=== PATIENT | female | born 1935 | race Caucasian/White ===

== ENCOUNTER 2016-08-12 11:44 | Observation (INO) | payer OTHER ==
--- NOTE | ~2016-08-12 | ECH ---
Echocardiogram [address] [address] NAME: BLANCA MORE : 33 STATUS : DIS Gurpreet PAT#: [id number] AGE: 81 ADM/REG DATE : 08/12/16 MR#: [id number] REPORT SERV DATE: 08/16/16 DICTATED BY: ALYSSA GUILLAUME DATE: 08/14/16 REPORT STATUS : Draft TRANSCRIBED BY: MODL DATE: 08/14/16 ORDERING: Grzegorz Lincoln Jr, MD INDICATIONS: Syncope. STUDY QUALITY: Good. MEASUREMENTS (in cm) Aortic Root = 3.4. Septal Wall = 1.0 Posterior Wall = 1.0 LV Diastolic = 5.0 LV Systolic = 3.7 Left Atrium = 3.4 STEW: 21 mL/m2. LVEF: By Menjivar's method 45% (may differ from visual estimation of LVEF). E/A: 0.4. 2D DOPPLER: Aortic Valve: Sclerotic with adequate systolic excursion. Aortic Root: Normal. Mitral Valve: Mitral annular calcification identified with adequate leaflet excursion in diastole. Tricuspid Valve: Morphologically normal without prolapse. Pulmonic Valve: Grossly normal. Left Ventricle: No high grade segmental wall motion abnormalities. Ejection fraction is estimated to be in the range of 50%. Right Ventricle: Normal. Pericardial Space: No effusion. Intracardiac Masses: None. Other: None. DOPPLER/COLOR FLOW: 1+ MR. 1+ TR. No [place]. FINAL IMPRESSION: 1. Normal LV wall thickness and size. 2. Lower limits of normal LVEF without segmental wall motion abnormalities. 3. Grade 1 diastolic dysfunction. 4. Aortic valve sclerosis without stenosis. 5. No echocardiographic substrate for syncope identified. /MODL Alyssa Guillaume M.D. / [id number] Echocardiogram [address] [address] NAME: BLANCA MORE : 33 STATUS : DIS Gurpreet PAT#: [id number] AGE: 81 ADM/REG DATE : 08/12/16 MR#: [id number] REPORT SERV DATE: 08/16/16 DICTATED BY: ALYSSA GUILLAUME DATE: 08/14/16 REPORT STATUS : Draft TRANSCRIBED BY: IMMANUEL DATE: 08/14/16 CC: Grzegorz Lincoln Jr, MD Janak Naik, M.D.
--- NOTE | ~2016-08-12 | HP ---
History And Physical [place] [address] [place]. [address] NAME: BLANCA MORE : 33 STATUS : ADM Gurpreet PAT#: [id number] AGE: 81 ADM/REG DATE : 08/12/16 MR#: [id number] REPORT SERV DATE: 08/12/16 DICTATED BY: JR. LINCOLN WILLIAM JOHN DATE: 08/12/16 REPORT STATUS : Draft TRANSCRIBED BY: MODL DATE: 08/12/16 DATE OF ADMISSION: 08/12/2016 HISTORY OF PRESENT ILLNESS: This patient was discussed with Dr. Fuentes from the emergency room prior to acceptance. The patient is an 81-year-old female, who presented to the emergency room after a fall. The patient has been nauseous for a few days with decreased oral intake. She went to the toilet today. She urinated, got up, flushed the toilet, and then fell forward striking her left eye on the commode. She remembers falling. There was no definite loss of consciousness. The patient's daughter was in the next room and witnessed the patient post fall without loss of consciousness. No shaking, no loss of bowel or bladder control. The patient denies chest pain, shortness of breath, palpitations, fevers, chills, or urinary complaints. PAST MEDICAL HISTORY: Includes: 1. 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 2. Hypertension. 3. 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 4. Coronary artery disease with stents x2, followed by Dr. Guillaume. 5. Hypothyroidism. 6. Chronic kidney disease, stage III. 7. History of gastric ulcers. 8. History of esophageal ulcers. 9. Hyperlipidemia. 10.History of cholecystectomy. HOME MEDICATIONS: Include: 1. Aspirin 81 daily. 2. Plavix 75 daily. 3. Lantus 20 units twice a day. 4. Synthroid 175 mcg daily. 5. Lopressor 100 twice a day. 6. Multivitamin tablet orally daily. 7. Nifedipine 60 daily. 8. Omeprazole 40 daily. 9. Pravachol 40 daily. 10.Ropinirole 1 mg daily. 11.Aldactone 25 mg daily. 12.Demadex 40 mg in the morning, 20 mg in the evening. ALLERGIES: NO KNOWN DRUG ALLERGIES. FAMILY HISTORY: Mother at age 77 of myocardial infarction. Father at age 54 of History And Physical [place] [address] [place]. [address] NAME: BLANCA MORE : 33 STATUS : ADM Gurpreet PAT#: [id number] AGE: 81 ADM/REG DATE : 08/12/16 MR#: [id number] REPORT SERV DATE: 08/12/16 DICTATED BY: JR. LINCOLN WILLIAM JOHN DATE: 08/12/16 REPORT STATUS : Draft TRANSCRIBED BY: IMMANUEL DATE: 08/12/16 stroke. SOCIAL HISTORY: Lives in [place], [place] alone. She is , since 2007, has four children who visit often. 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 She denies tobacco, alcohol, or illicit drugs. REVIEW OF SYSTEMS: A full 12-point review of systems conducted with the patient. She denies all complaints except gradual weight loss with decreased appetite, nonproductive cough of several weeks and nausea and vomiting. Code status is discussed with the patient. In the event of cardiopulmonary arrest, she desires full resuscitative measures. PHYSICAL EXAMINATION: VITAL SIGNS: Temperature 98.4, blood pressure 135/63, heart rate 89, respiratory rate 24, supine blood pressure 138/64 with a heart rate of 83, sitting blood pressure 120/64 with a heart rate of 99, standing blood pressure 74/43 with a heart rate of 108. GENERAL: The patient is alert, oriented, pleasant in no distress. HEENT: Her pupils are equal, round, and reactive to light. Extraocular motion intact. Sclerae anicteric. Oropharynx clear. She had left yamini-orbital ecchymoses from the fall. Mucosal membranes were dry. NECK: Supple without jugular venous distention, thyromegaly, or bruits. LUNGS: Clear to auscultation bilaterally with symmetrical chest rise. CARDIOVASCULAR: S1, S2 without gallop, murmur, or rub. There is regular rate and rhythm. Point of maximal impulse was not discernable. ABDOMEN: Soft, nontender, bowel sounds present. No hepatosplenomegaly. EXTREMITIES: Show no clubbing, cyanosis, or edema. NEUROLOGIC: Cranial nerves 2 through 12 are intact. Strength and sensation were full and equal throughout. Knee jerk was equal and symmetrical. Romberg was negative. There was no drift. PSYCHIATRIC: Mood and affect were appropriate. DERMATOLOGIC: No rash or other lesions noted. LYMPH NODE: Survey is negative in cervical and supraclavicular region. LABORATORY DATA: White count of 8.6, hemoglobin 13.9, platelets 249. PTT of 23.6, PT of 13.8 with an INR of 1.1. Sodium 137, potassium 3.3, chloride 96, bicarb 31, BUN 29, creatinine 2, glucose 189, magnesium 2.1. Calcium 11.6, troponin I 0.07, baseline creatinine is 1.9. CT of the brain showed no acute event. There was left orbital swelling, atrophy, and chronic ischemic changes in the brain. EKG shows sinus rhythm rate of 88 with LVH with widening QRS and Q-waves in the inferior leads. ASSESSMENT AND PLAN: An 81-year-old female with: 1. Orthostatic hypotension with fall. CT of the head is without intracranial process. There was no neurologic deficit. I discussed syncope workup with the patient. Given History And Physical [address] [address] NAME: BLANCA MORE : 33 STATUS : ADM Gurpreet PAT#: [id number] AGE: 81 ADM/REG DATE : 08/12/16 MR#: [id number] REPORT SERV DATE: 08/12/16 DICTATED BY: JR. LINCOLN WILLIAM JOHN DATE: 08/12/16 REPORT STATUS : Draft TRANSCRIBED BY: IMMANUEL DATE: 08/12/16 her positive orthostatics, we will defer on parts of the workup. We will plan to hold her torsemide, give 1 L fluid bolus, hold her Aldactone, check orthostatic vital signs in the morning. Check UA with reflex culture and check a troponin x2 to map out the elevated troponin which likely represents demand ischemia. We will also check an echocardiogram. 2. Hypokalemia, replace per protocol. 3. Hypercalcemia, likely due to volume contraction. We will recheck in the morning. We will also check an ionized calcium, parathyroid hormone, and parathyroid hormone related peptide, LDH, CMP looking specifically for alkaline phosphatase. 4. Insulin-requiring diabetes mellitus. We will continue home regimen. Check hemoglobin A1c. 5. Hypertension. Continue home medications. 6. Coronary artery disease with stent. Continue aspirin and Plavix. 7. Hypothyroidism. Continue Synthroid. Check a TSH. 8. Hyperlipidemia. Continue Pravachol. 9. This patient is full code. 10.Observation status. WJF/MODL Grzegorz Lincoln Jr, MD / [id number] CC: Grzegorz Lincoln Jr, MD
--- NOTE | ~2016-08-12 | DS ---
Discharge Summary [facility] [address] [place]. [address] NAME: BLANCA MORE : 33 STATUS : DIS Gurpreet PAT#: [id number] AGE: 81 ADM/REG DATE : 08/12/16 MR#: [id number] REPORT SERV DATE: 08/15/16 DICTATED BY: JR. LICNOLN WILLIAM JOHN DATE: 08/14/16 REPORT STATUS : Draft TRANSCRIBED BY: MODMonserrat DATE: 08/14/16 ADMISSION DATE: 08/12/2016 DISCHARGE DATE: 08/14/2016 DISCHARGE DIAGNOSES: Include: 1. Orthostatic syncope. 2. Elevated troponin with flat curve. 3. Hypercalcemia. 4. Insulin-requiring diabetes mellitus with hemoglobin A1c of 9. 5. Hypertension. 6. Coronary artery disease. 7. Hypothyroidism. 8. Hyperlipidemia. 9. Chronic kidney disease, stage 3 to 4. 10.Hypokalemia. 11.Proteus mirabilis urinary tract infection. 12.Obesity with a body mass index of 30.5. OPERATIONS, PROCEDURES, AND TREATMENTS: Include: 1. Urine culture done on 08/12/2016, which showed Proteus mirabilis resistant to multiple antibiotics, but sensitive to cefuroxime, aztreonam, ciprofloxacin, Bactrim, Zosyn, and amikacin. 2. CT of the brain done on 08/12/2016, which showed no acute intracranial abnormality without acute cranial fracture. There was prominent left periorbital soft tissue swelling and [id number] cortical volume loss compatible with mild chronic deep white matter ischemic changes. 3. Echocardiogram, which is pending at the time of this dictation. DISCHARGE MEDICATIONS: Include: 1. Aspirin 81 mg orally daily. 2. Plavix 75 mg orally daily. 3. Demadex 40 mg orally in the morning. 4. Glargine insulin 20 units twice a day. 5. Synthroid 175 mcg daily. 6. Metoprolol 100 mg twice a day. 7. Omeprazole 40 mg daily. 8. Pravachol 40 mg daily. 9. Ropinirole 1 mg orally daily. 10.Multivitamin tablet orally daily. 11.Nifedipine 60 mg orally daily. 12.Cefuroxime 500 mg orally daily for five days. HOSPITAL COURSE: The patient is an 81-year-old female who presented to the emergency room after a fall on 08/12/2016. The patient said she had been nauseous for a few days, decreased oral intake. She went to the toilet on the day of presentation, urinated, got up from the toilet, flushed the toilet and then fell forward striking her left eye on Discharge Summary [address] [place]. [address] NAME: BLANCA MORE : 33 STATUS : DIS Gurpreet PAT#: [id number] AGE: 81 ADM/REG DATE : 08/12/16 MR#: [id number] REPORT SERV DATE: 08/15/16 DICTATED BY: JR. LINCOLN WILLIAM JOHN DATE: 08/14/16 REPORT STATUS : Draft TRANSCRIBED BY: IMMANUEL DATE: 08/14/16 the commode. She remembers falling. She remembers striking the commode with her face. There was no definite loss of consciousness. The patient's daughter was in the next room and saw the patient shortly after the fall without any loss of consciousness, shaking, loss of bowel or bladder control. There were no chest pain, shortness of breath, palpitations, fevers, chills, or urinary complaints. On initial exam, temperature was 98.4, blood pressure 135/63, heart rate 89, respiratory rate 24. Exam was remarkable for profound orthostatic blood pressure drop from 138/64 in the supine position to 74/43 in the sitting position. Exam otherwise other than left periorbital ecchymosis from her fall was unremarkable exam. Neurologic exam was unremarkable. LABORATORY: Showed a BUN of 29 and creatinine of 2 and hypercalcemia at 11.6. CT of the brain was as detailed above. EKG was nonischemic. Troponin was 0.07. The patient was admitted to the Clinical Decision Unit for orthostatic hypotension with fall. Her diuretics were held. She was given about 2 L of IV fluids. Orthostatic vital signs on hospital day #2 were negative. A urinalysis was performed and did have evidence of urinary tract infection with pyuria without significant hematuria. The patient was started on Rocephin empirically. Cultures grew Proteus mirabilis, which was sensitive to cefuroxime. She will be discharged home on 5 days of cefuroxime orally at a renally adjusted dose of 500 mg daily. Regarding the elevated troponin, she had followup troponins x2, all of which were 0.07. EKG was nonischemic. She had an echocardiogram; unfortunately, it is not read at this point. The patient strongly desires discharge home. We discussed the risks. She chooses to accept those risks and said she will follow up with Dr. Rosario for the reading of the echocardiogram. Regarding hypercalcemia, this seems to be due to volume contraction. She did have parathyroid hormone and parathyroid hormone related peptide sent, however, not returned at this time. The calcium normalized with hydration. The remainder of the patient's health problems remained stable. She will be discharged home today, 08/14/2016. She will follow up with Dr. Rosario in one week. FOLLOWUP ISSUES: 1. Followup of the echocardiogram, which was performed on 08/13/2016, which has not yet been read. 2. Followup of the parathyroid home and parathyroid hormone related peptide. 3. Continued assessment of her volume status. This patient is very difficult to judge's clerk volume status on. This discharge took 33 minutes for patient encounter, coordination of care, and documentation. For discharge exam and laboratory, please see daily progress note. Discharge diet is ADA. Activity as tolerated. WJF/MODL Discharge Summary [address] [place]. [address] NAME: BLANCA MORE : 33 STATUS : DIS Gurpreet PAT#: [id number] AGE: 81 ADM/REG DATE : 08/12/16 MR#: [id number] REPORT SERV DATE: 08/15/16 DICTATED BY: JR. LINCOLN WILLIAM JOHN DATE: 08/14/16 REPORT STATUS : Draft TRANSCRIBED BY: MODMonserrat DATE: 08/14/16 Grzegorz Lincoln Jr, MD / [id number] CC: Grzegorz Lincoln Jr, MD Janak Naik, M.D.
[2016-08-12 11:01] LABS: BASOPHILS 0.1 %; BASOPHILS ABSOLUTE 0.01 10/3/uL (0.0-0.16); EOSINOPHILS ABSOLUTE 0.09 10/3/uL (0.0-0.53); ER CBC TAT 0 Hrs 03 Mins; HEMOGLOBIN 13.9 g/dL (12.0-16.0); IMMATURE GRANULOCYTES 0.2 %; IMMATURE GRANULOCYTES ABSOLUTE 0.02 10/3/uL (0.0-0.11); LYMPHOCYTES 29.8 %; LYMPHOCYTES ABSOLUTE 2.57 10/3/uL (0.67-4.30); MEAN CORPUSCULAR HEMOGLOB 29.5 pg (26.0-34.0); MEAN CORPUSCULAR VOLUME 86.8 fL (80-100); MEAN PLATELET VOLUME 10.1 fL (9.2-13.0); MONOCYTES 8.6 %; MONOCYTES ABSOLUTE 0.74 10/3/uL (0.21-1.20); NEUTROPHILS 60.3 %; PLATELET COUNT 249 10/3/uL (150-400); RBC DISTRIBUTION WIDTH 12.9 % (12.0-16.0); RED CELL COUNT 4.71 10/6/uL (4.0-5.6); WHITE BLOOD CELLS 8.6 10/3/uL (4.5-10.5)
[2016-08-12 11:02] LABS: HEMATOCRIT 40.9 % (36.0-48.0); MANUAL DIFF NO %
[2016-08-12 11:09] LABS: INTERNATIONAL NORMAL RATI 1.1 UNITS (-); PARTIAL THROMBO TIME 23.6 SEC (22.5-37.2); PROTIME (NOT ORD) 13.8 SEC (12.0-14.5)
[2016-08-12 11:16] LABS: CHLORIDE, SERUM 96 MMOL/L (96-112); CO2 (CARBON DIOXIDE) 31 MMOL/L (24-34); CREATININE 1.99 MG/DL (0.55-1.02); GFR AFRICAN AMERICAN 26 ML/MIN (>=60); GFR NON AFRICAN AMERICAN 23 ML/MIN (>=60); GLUCOSE, SERUM 189 MG/DL (60-99); SODIUM, SERUM 137 MMOL/L (135-148)
[2016-08-12 11:18] LABS: BUN (BLOOD UREA NITROGEN) 29 MG/DL (6-23); CALCIUM, SERUM 11.6 MG/DL (8.5-10.4); CHEST PAIN PROFILE TAT 0 Hrs 20 Mins; POTASSIUM, SERUM 3.3 MMOL/L (3.5-5.3); TROPONIN I 0.07 NG/ML (<0.05)
[~2016-08-12 11:44] MED LIST: ADALAT CC60 MG PO; ASA5GR PO; ASAB PO; BRILINTA90 MG PO; CAT2 PO; CELEBREX2 PO; CENTRUM PO; CENTRUM TAB1 TAB PO; DIABETA5 PO; FLAG500TAB PO; GLUCOPHAGE1000 MG PO; HALF81 PO; JANUMET1 TA1 PO; KDUR20 PO; L40 PO; L80 PO; LEVAQUIN750 MG PO; LEVOTHYROXIN150 MCG PO; LOP100 PO; LOTE40 PO; MULTIVIT/MIN PO; NEUR100 PO; NITROII20C TOP; NORV10 PO; NORV5 PO; PERCOCET1 TA3 PO; PLAVIX PO; PRILOSEC10 MG PO; PRILOSEC40 MG PO; REQUIP1 PO; REQUIP2 PO; SYNTHROID175 MCG PO; TOPXL100 PO; TOUJEO SC; VALTURN1 PO; VITC500 PO; ZAROX2.5B PO
[2016-08-12] MEDS ORDERED: LOP100 PO (13:36)
[2016-08-12] MEDS ORDERED: CENTRUM PO (13:37)
[2016-08-12] MEDS ORDERED: PRILOSEC40 MG PO (13:37)
[2016-08-12] MEDS ORDERED: PLAVIX PO (13:38)
[2016-08-12] MEDS ORDERED: SYNTHROID175 MCG PO (13:38)
[2016-08-12] MEDS ORDERED: TOUJEO SC (13:38)
[2016-08-12] MEDS ORDERED: PRAVACHOL40 MG PO (13:39)
[2016-08-12] MEDS ORDERED: ASAB PO (13:39)
[2016-08-12] MEDS ORDERED: REQUIP1 PO (13:39)
[2016-08-12] MEDS ORDERED: NIFEDIAC CC60 MG PO (13:40)
[2016-08-12] MEDS ORDERED: DEMA20 PO ×2 (13:41→13:42)
[2016-08-12] MEDS ORDERED: SPIRO25 PO (13:42)
[2016-08-12 19:23] LABS: ASCORBIC ACID (UR NOT ORDER) NEG (NEG); BILIRUBIN, URINE NEGATIVE (NEG); KETONE, URINE NEGATIVE (NEG); LEUKOCYTE ESTERASE(NOT OR LARGE (NEG); WBC (NOT ORDERED) (RFLEX) 120 (0-5)
[2016-08-13 05:45] LABS: CALCIUM IONIZED 5.65 MG/DL (3.80-4.80)
[2016-08-13 05:46] LABS: BASOPHILS 0.3 %; BASOPHILS ABSOLUTE 0.03 10/3/uL (0.0-0.16); EOSINOPHILS 2.2 %; EOSINOPHILS ABSOLUTE 0.21 10/3/uL (0.0-0.53); HEMATOCRIT 38.1 % (36.0-48.0); HEMOGLOBIN 12.7 g/dL (12.0-16.0); IMMATURE GRANULOCYTES 0.2 %; IMMATURE GRANULOCYTES ABSOLUTE 0.02 10/3/uL (0.0-0.11); LYMPHOCYTES 51.5 %; LYMPHOCYTES ABSOLUTE 4.99 10/3/uL (0.67-4.30); MANUAL DIFF NO %; MEAN CORPUS HGB CONC 33.3 g/dL (32.0-36.0); MEAN CORPUSCULAR HEMOGLOB 29.7 pg (26.0-34.0); MEAN CORPUSCULAR VOLUME 89.2 fL (80-100); MONOCYTES 9.1 %; MONOCYTES ABSOLUTE 0.88 10/3/uL (0.21-1.20); NEUTROPHILS 36.7 %; NEUTROPHILS ABSOLUTE 3.55 10/3/uL (2.02-8.40); PLATELET COUNT 255 10/3/uL (150-400); RBC DISTRIBUTION WIDTH 12.9 % (12.0-16.0); RED CELL COUNT 4.27 10/6/uL (4.0-5.6); WHITE BLOOD CELLS 9.7 10/3/uL (4.5-10.5)
[2016-08-13 06:06] LABS: INTACT PTH (ICMA) 31.9 PG/ML (10.0-65.0)
[2016-08-13 06:14] LABS: BUN (BLOOD UREA NITROGEN) 32 MG/DL (6-23); CHLORIDE, SERUM 102 MMOL/L (96-112); CO2 (CARBON DIOXIDE) 29 MMOL/L (24-34); CREATININE 2.16 MG/DL (0.55-1.02); GFR AFRICAN AMERICAN 24 ML/MIN (>=60); GFR NON AFRICAN AMERICAN 21 ML/MIN (>=60); SGOT(AST) 20 U/L (5-40); SGPT(ALT) 16 U/L (5-65); SODIUM, SERUM 139 MMOL/L (135-148); TOTAL BILIRUBIN 0.8 MG/DL (0-1.2); TOTAL PROTEIN 6.9 G/DL (6.0-8.5)
[2016-08-13 06:16] LABS: ALBUMIN 3.4 G/DL (3.5-5.0); ALKALINE PHOSPHATASE 77 U/L (45-117); CALCIUM, SERUM 10.4 MG/DL (8.5-10.4); GLOBULIN 3.5 G/DL (2.5-4.1); GLUCOSE, SERUM 69 MG/DL (60-99)
[2016-08-14 04:56] LABS: BUN (BLOOD UREA NITROGEN) 35 MG/DL (6-23); CHLORIDE, SERUM 101 MMOL/L (96-112); CO2 (CARBON DIOXIDE) 28 MMOL/L (24-34); CREATININE 2.18 MG/DL (0.55-1.02); GFR AFRICAN AMERICAN 24 ML/MIN (>=60); GFR NON AFRICAN AMERICAN 20 ML/MIN (>=60); SODIUM, SERUM 137 MMOL/L (135-148)
[2016-08-14 04:57] LABS: CALCIUM, SERUM 9.3 MG/DL (8.5-10.4); GLUCOSE, SERUM 85 MG/DL (60-99)
[2016-08-14] MEDS ORDERED: CEFT5 PO (12:31)
[2016-08-14] MEDS ORDERED: DEMA20 PO (12:33)
== END 2016-08-14 13:02 | disposition home or self-care (01) ==
LOC: ER 11:44 → CDU1 13:31 → CDU2 14:17
PROVIDERS: Emergency Medicine; Internal Medicine
DX: I95.1 Orthostatic hypotension (principal); W19.XXXA Unspecified fall, initial encounter; E83.52 Hypercalcemia; I12.9 Hypertensive chronic kidney disease with stage 1 through stage 4 chronic kidney disease, or unspecified chronic kidney disease; E11.22 Type 2 diabetes mellitus with diabetic chronic kidney disease; N18.3 Chronic kidney disease, stage 3 (moderate); I25.10 Atherosclerotic heart disease of native coronary artery without angina pectoris; I42.8 Other cardiomyopathies; I51.7 Cardiomegaly; E03.9 Hypothyroidism, unspecified; E78.5 Hyperlipidemia, unspecified; E87.6 Hypokalemia; N39.0 Urinary tract infection, site not specified; B96.4 Proteus (mirabilis) (morganii) as the cause of diseases classified elsewhere; E66.9 Obesity, unspecified; Z68.30 Body mass index [BMI] 30.0-30.9, adult; Z87.19 Personal history of other diseases of the digestive system; Z90.49 Acquired absence of other specified parts of digestive tract; Z79.82 Long term (current) use of aspirin; Z79.02 Long term (current) use of antithrombotics/antiplatelets; Z79.4 Long term (current) use of insulin; Z79.899 Other long term (current) drug therapy; Z82.49 Family history of ischemic heart disease and other diseases of the circulatory system; Z82.3 Family history of stroke
CPT/HCPCS: 70450; 80048; 80053; 81001; 82330; 82962; 83036; 83519; 83615; 83735; 83970; 84443; 84484; 85025; 85610; 85730; 87077; 87086; 87186; 93005; 93306; 96374; 96375; 99285; A9270-GY; G0378; J2405